=== PATIENT | male | born 1995 | race Caucasian/White ===

== ENCOUNTER 2018-05-17 00:41 | Emergency (ER) | payer SELFPAY ==
[~2018-05-17] VITALS: Ht 182.9 cm; Wt 69.0 kg
[2018-05-17] MEDS ORDERED: CEFTRIAXONE SODIUM 250 MG/VIAL IM ONE (05:00)
[2018-05-17] MEDS ORDERED: AZITHROMYCIN 500 MG TABLET PO ONE (05:00)
[2018-05-17] MEDS ORDERED: LIDOCAINE HCL 1% 20ML VIAL (Pyxis) INJ INFIL ONE (05:00)
[2018-05-17 05:51] VITALS: BP 120/76
== END 2018-05-17 05:52 | disposition home or self-care (01) ==
LOC: ER 01:40
DX: S40.862A Insect bite (nonvenomous) of left upper arm, initial encounter (principal); S40.861A Insect bite (nonvenomous) of right upper arm, initial encounter; N34.2 Other urethritis; F12.10 Cannabis abuse, uncomplicated; F17.200 Nicotine dependence, unspecified, uncomplicated; W57.XXXA Bitten or stung by nonvenomous insect and other nonvenomous arthropods, initial encounter; Y93.89 Activity, other specified; Y92.89 Other specified places as the place of occurrence of the external cause; Y99.8 Other external cause status
CPT/HCPCS: 96372; 99283; J0696; J3490; 81025